=== PATIENT | male | born 1940 | race Caucasian/White ===

== ENCOUNTER 2022-11-24 06:04 | Day surgery (SDC) | payer MEDICARE, OTHER ==
[~2022-11-24] VITALS: Ht 170.2 cm; Wt 71.3 kg
[~2022-11-24 06:04] MED LIST: ASCO500 PO; ATOR20 PO; CLOP75 PO; CYAN500 PO; DICLOFENAC SOD100 GM TP; DOCU100 PO; FAMO20 PO; FINA5 PO; HYDCHL25 PO; Hytrin2 MG PO; Isosorbide Mono30 MG PO; LEVSOD112 PO; LISI20 PO; MESA250ER PO; METOPROLOL SUCC25 MG PO; POTA10T PO; SIME80CH PO; SUCR1 PO; TRAZ100 PO
--- NOTE | 2022-11-24 07:37 | NUR ---
11/24/22 0737 Aleena Piña TIME OUT COMPLETED 724, DR TABARES IN ROOM TO PERFORM NERVE BLOCK.
--- NOTE | 2022-11-24 08:25 | NUR ---
11/24/22 0825 Amanda Solano PATIENT POSITIONED ON GEL SEBASTIAN BAG. PILLOW BETWEEN KNEES. HEAD POSITIONED BY DR TABARES ON TOWELS. LEFT ARM SECURED ON PADDED ARM BOARD. GEL UNDER EACH SEAT BELT. JOSE.
--- NOTE | 2022-11-24 10:36 | NUR ---
11/24/22 1036 Kwaku Price IV REMOVED. WNL. CATHETER INTACT.
[2022-11-24 10:37] VITALS: BP 129/76
== END 2022-11-24 12:14 | disposition home or self-care (01) ==
LOC: ORSCSDS 06:04
PROVIDERS: Orthopaedic Surgery
PROC: 0RNJ4ZZ Release Right Shoulder Joint, Percutaneous Endoscopic Approach (ICD-10-PCS; principal; 2022-11-24 07:30)
DX: M75.41 Impingement syndrome of right shoulder (principal); M75.111 Incomplete rotator cuff tear or rupture of right shoulder, not specified as traumatic; S46.101A Unspecified injury of muscle, fascia and tendon of long head of biceps, right arm, initial encounter; I12.9 Hypertensive chronic kidney disease with stage 1 through stage 4 chronic kidney disease, or unspecified chronic kidney disease; N18.9 Chronic kidney disease, unspecified; I25.10 Atherosclerotic heart disease of native coronary artery without angina pectoris; E78.5 Hyperlipidemia, unspecified; K21.9 Gastro-esophageal reflux disease without esophagitis; Z79.899 Other long term (current) drug therapy; F41.9 Anxiety disorder, unspecified
CPT/HCPCS: J0171; J0690; J2704; J3010; J7120

== ENCOUNTER 2024-03-28 23:41 | Emergency (ER) | payer MEDICARE, OTHER ==
[~2024-03-28] VITALS: Ht 167.6 cm; Wt 81.7 kg
[2024-03-29 00:20] LABS: BASOPHILS ABSOLUTE AUTO 0.03 K/mm3 (0.00-0.23); BASOPHILS PERCENT AUTO 0 % (0-2); EOSINOPHILS ABSOLUTE AUTO 0.25 K/mm3 (0.00-0.68); EOSINOPHILS PERCENT AUTO 3 % (0-6); Hematocrit 35.2 % (37.0-53.0); Hemoglobin 11.8 g/dL (13.5-17.5); IMMATURE GRAN ABSOLUTE AUTO 0.02 K/mm3 (0.00-0.10); IMMATURE GRAN PERCENT AUTO 0 % (0-1); LYMPHOCYTES ABSOLUTE AUTO 1.38 K/mm3 (0.84-5.20); LYMPHOCYTES PERCENT AUTO 18 % (21-46); MONOCYTES ABSOLUTE AUTO 0.59 K/mm3 (0.16-1.47); MONOCYTES PERCENT AUTO 8 % (4-13); Mean Corpuscular HGB 34.7 pg (26.0-34.0); Mean Corpuscular HGB Conc 33.5 g/dL (31.5-36.5); Mean Corpuscular Volume 104 fL (80-100); Mean Platelet Volume 11.8 fL (9.1-12.4); NEUTROPHILS ABSOLUTE AUTO 5.62 K/mm3 (1.96-9.15); NEUTROPHILS PERCENT AUTO 71 % (41-73); Platelet Count 163 K/mm3 (150-400); RDW Coefficient Variation 12.1 % (11.7-14.2); RDW Standard Deviation 45.8 fL (35.1-46.3); White Blood Cell Count 7.89 K/mm3 (4.00-11.30)
[2024-03-29 00:42] LABS: Albumin, Blood 3.5 g/dL (3.4-5.0); Albumin/Globulin Ratio 0.9 (0.8-1.8); Bilirubin, Total 0.3 mg/dL (0.1-1.0); Creatinine, Blood 1.53 mg/dL (0.60-1.20); Total Protein, Blood 7.5 g/dL (6.4-8.2)
[2024-03-29] MEDS ORDERED: Amoxicillin/Clavulanate K 875 MG Tab PO ONE (03:50)
[2024-03-29 04:00] VITALS: BP 185/88
== END 2024-03-29 04:09 | disposition home or self-care (01) ==
LOC: ER 23:41
PROVIDERS: Physician Assistant
DX: K11.20 Sialoadenitis, unspecified (principal); I25.10 Atherosclerotic heart disease of native coronary artery without angina pectoris; E03.9 Hypothyroidism, unspecified; K21.9 Gastro-esophageal reflux disease without esophagitis; Z79.899 Other long term (current) drug therapy; Z79.890 Hormone replacement therapy
CPT/HCPCS: 70491; 80053; 85025; 99284-25; A9270; Q9967